=== PATIENT | female | born 1975 | race American Indian/Alaskan Native ===

== ENCOUNTER 2016-12-18 10:04 | Emergency (ER) | payer OTHER ==
[2016-12-18] MEDS ORDERED: DECADRON IM ONE (11:33)
--- NOTE | 2016-12-18 11:39 | Emergency Department Report ---
ED Back Pain/Injury HPI - General Chief Complaint: Extremity Injury, Lower Stated Complaint: LT LEG PAIN Time Seen by Provider: 12/18/16 11:22 Source: patient Mode of arrival: Ambulatory Limitations: No Limitations - History of Present Illness Initial Comments: PT states years ago, she was dx with sciatica. PT states she has been having the same pain for 1 week. PT states her pain is in her left low back and radiates down her buttocks to her left leg. PT states she had tried taking OTC Naprosyn but no relief. PT denies any new injury or trauma. MD Complaint: back pain Onset/Timin -: Gradual, week(s) Similar Symptoms Previously: Yes Radiation: left leg Severity scale (0 -10): 9 Quality: sharp Improves With: none Worsens With: sitting upright Associated Symptoms: denies other symptoms. denies: weakness, difficulty walking, difficulty urinating, incontinence, fever/chills, headaches, abdominal pain, loss of appetite, nausea/vomiting, rash Treatments Prior to Arrival: NSAIDS - Related Data Home Medications Medication Instructions Recorded Confirmed Last Taken amLODIPine [Norvasc] 10 mg PO DAILY 11/14/14 12/07/14 12/07/14 04:30 Tramadol HCl [Tramadol HCl] 1 tab PO PRN PRN 12/01/14 12/07/14 12/05/14 19:00 Hydrochlorothiazide 25 mg PO DAILY 12/05/14 12/05/14 11/30/14 [Hydrochlorothiazide] Previous Rx's Medication Instructions Recorded Last Taken Type Acetaminophen/Codeine [Tylenol #3] 1 tab PO Q6H PRN #12 tab 12/18/16 Unknown Rx Ibuprofen [Motrin] 600 mg PO Q8H PRN #15 tablet 12/18/16 Unknown Rx methOCARBAMOL [Robaxin TAB] 500 mg PO Q6H PRN #15 tablet 12/18/16 Unknown Rx Allergies Allergy/AdvReac Type Severity Reaction Status Date / Time metronidazole [From Flagyl] Allergy Swelling Verified 12/18/16 10:12 ED Review of Systems ROS: Stated complaint: LT LEG PAIN Other details as noted in HPI Comment: All other systems reviewed and negative Constitutional: denies: chills, fever Respiratory: denies: shortness of breath, SOB with exertion, SOB at rest Cardiovascular: denies: chest pain Gastrointestinal: denies: abdominal pain, nausea, vomiting Musculoskeletal: back pain ED Past Medical Hx - Past Medical History Hx Hypertension: Yes (10+YRS ) Hx Renal Disease: No Hx Seizures: No Hx Asthma: No Additional medical history: SCIATICA. OBESITY - Surgical History Additional Surgical History: LEFT MENISCUS REPAIR - Social History Smoking Status: Never Smoker Substance Use Type: None - Medications Home Medications: Home Medications Medication Instructions Recorded Confirmed Last Taken Type amLODIPine [Norvasc] 10 mg PO DAILY 11/14/14 12/07/14 12/07/14 04:30 History Tramadol HCl [Tramadol HCl] 1 tab PO PRN PRN 12/01/14 12/07/14 12/05/14 19:00 History Hydrochlorothiazide 25 mg PO DAILY 12/05/14 12/05/14 11/30/14 History [Hydrochlorothiazide] Acetaminophen/Codeine [Tylenol #3] 1 tab PO Q6H PRN #12 tab 12/18/16 Unknown Rx Ibuprofen [Motrin] 600 mg PO Q8H PRN #15 tablet 12/18/16 Unknown Rx methOCARBAMOL [Robaxin TAB] 500 mg PO Q6H PRN #15 tablet 12/18/16 Unknown Rx ED Physical Exam - General Limitations: No Limitations General appearance: alert, in no apparent distress - Head Head exam: Present: atraumatic, normocephalic, normal inspection - Eye Eye exam: Present: normal appearance, PERRL, EOMI. Absent: conjunctival injection - ENT ENT exam: Present: normal exam, normal external ear exam - Neck Neck exam: Present: normal inspection, full ROM. Absent: tenderness, lymphadenopathy - Respiratory Respiratory exam: Present: normal lung sounds bilaterally. Absent: respiratory distress, chest wall tenderness - Cardiovascular Cardiovascular Exam: Present: regular rate, normal rhythm, normal heart sounds - GI/Abdominal GI/Abdominal exam: Present: soft. Absent: tenderness - Extremities Exam Extremities exam: Present: normal inspection, full ROM - Back Exam Back exam: Present: normal inspection, full ROM, tenderness. Absent: CVA tenderness (R), CVA tenderness (L), muscle spasm, paraspinal tenderness, vertebral tenderness - Expanded Back Exam Expanded Back exam: Absent: saddle anesthesia Back exam: Sciatic Notch Tenderness: Left, Negative Straight Leg Raising: Left - Neurological Exam Neurological exam: Present: alert, oriented X3 - Psychiatric Psychiatric exam: Present: normal affect, normal mood - Skin Skin exam: Present: warm, dry, intact, normal color. Absent: rash ED Course Vital Signs 12/18/16 12/18/16 10:17 12:02 Temperature 98.2 F 98.6 F Pulse Rate 83 72 Respiratory 17 18 Rate Blood Pressure 149/93 Blood Pressure 138/91 [Right] O2 Sat by Pulse 100 99 Oximetry - Reevaluation(s) Reevaluation #1: 12/18/16 11:39 PT aware of dx and plan of care. PT has no questions at this time. - Pulse Oximetry Interpretation Digit-Finger Initial Pulse Oximetry Readin Actions Taken: none ED Medical Decision Making - Differential Diagnosis sciatica, strain Critical Care Time: No Critical care attestation.: If time is entered above; I have spent that time in minutes in the direct care of this critically ill patient, excluding procedure time. ED Disposition Clinical Impression: Sciatica of left side Disposition: DC-01 TO HOME OR SELFCARE Is pt being admited?: No Does the pt Need Aspirin: No Condition: Stable Instructions: Sciatica (ED) Additional Instructions: No driving or alcohol after taking Tylenol #3 or Robaxin follow up with Ortho in 3-5 days Follow up with PCP with in one week for bp recheck return to Ed if worsening or concerns Prescriptions: Acetaminophen/Codeine [Tylenol #3] 1 tab PO Q6H PRN #12 tab PRN Reason: Pain , Severe (7-10) Ibuprofen [Motrin] 600 mg PO Q8H PRN #15 tablet PRN Reason: Pain methOCARBAMOL [Robaxin TAB] 500 mg PO Q6H PRN #15 tablet PRN Reason: Muscle Spasm Referrals: RAUL RAYA MD [Primary Care Provider] - 3-5 Days ROSA ARMSTRONG MD [Staff Physician] - 3-5 Days Forms: Work/School Release Form(ED) Time of Disposition: 11:41
[2016-12-18 12:04] VITALS: BP 138/91
== END 2016-12-18 12:04 | disposition home or self-care (01) ==
LOC: ED 10:04
DX: M54.42 Lumbago with sciatica, left side (principal); I10 Essential (primary) hypertension; E66.9 Obesity, unspecified; Z88.8 Allergy status to other drugs, medicaments and biological substances
CPT/HCPCS: 96372; 99282; J1100

== ENCOUNTER 2018-08-12 13:59 | Emergency (ER) | payer OTHER ==
--- NOTE | 2018-08-12 14:38 | Emergency Department Report ---
Chief Complaint: Shoulder Injury Stated Complaint: RIGHT SHOULDER Time Seen by Provider: 08/12/18 14:34 - HPI History of Present Illness: pt presents with right shoulder pain that began two weeks ago believes she initially "slept wrong" on the shoulder no injury, no fall, no trauma pt has taken tylenol no PCP pt has a hx of HTN, pt states she did not take her BP medication today, she is on amlodipine 5 mg states she has not had her BP checked in several months has not seen PCP in several months BP is 212/119 in triage MSE screening note: Focused history and physical exam performed. ED Disposition for MSE Condition: Stable
[2018-08-12] MEDS ORDERED: NORVASC PO ONE (15:01)
[2018-08-12] MEDS ORDERED: CATAPRES PO ONE (15:01)
[2018-08-12] MEDS ORDERED: TORADOL IM ONE (15:02)
[2018-08-12] MEDS ORDERED: DELTASONE PO ONE (15:02)
[2018-08-12 16:21] VITALS: BP 173/107
--- NOTE | 2018-08-12 16:21 | Emergency Department Report ---
ED Neck Pain/Injury HPI - General Chief Complaint: Shoulder Injury Stated Complaint: RIGHT SHOULDER Time Seen by Provider: 08/12/18 14:34 Mode of arrival: Ambulatory Limitations: No Limitations - History of Present Illness Initial Comments: This is a 43-year-old female nontoxic, well nourished in appearance, no acute signs of distress presents to the ED with c/o of right sided upper back pain x2 weeks. Patient stated that 2 weeks ago woke up with pain and has gotten worse. Patient denies any radiation of pain. Patient denies any trauma. Denies any bladder or bowel instability. Patient denies any urinary symptoms. Denies any fever, chills, nausea, vomiting, headache, stiff neck, chest pain or shortness of breath. Patient denies any numbness or tingling. Denies any allergies. Allergies includes Flagyl. Past medical history includes hypertension which she takes amlodipine but has not taken her dose today. MD Complaint: upper back pain -: week(s) (2) Place: home Severity: mild Severity scale (0 -10): 3 Quality: aching Consistency: intermittent Improves With: immobilization Worsens With: movement of neck Associated Symptoms: none. denies: headache, fever, numbness, tingling, weakness, difficulty walking, swollen glands, difficulty swallowing, nausea, vomiting Treatments Prior to Arrival: none - Related Data Home Medications Medication Instructions Recorded Confirmed Last Taken amLODIPine [Norvasc] 10 mg PO DAILY 11/14/14 12/07/14 12/07/14 04:30 hydroCHLOROthiazide 25 mg PO DAILY 12/05/14 12/05/14 11/30/14 [Hydrochlorothiazide] Previous Rx's Medication Instructions Recorded Last Taken Type Amoxicillin 500 mg PO BID #20 capsule 05/06/18 Unknown Rx Cyclobenzaprine [Flexeril] 10 mg PO QHS PRN #10 tablet 08/12/18 Unknown Rx Ibuprofen [Motrin] 600 mg PO Q8H PRN #20 tablet 08/12/18 Unknown Rx Allergies Allergy/AdvReac Type Severity Reaction Status Date / Time metronidazole [From Flagyl] Allergy Swelling Verified 12/18/16 10:12 ED Review of Systems ROS: Stated complaint: RIGHT SHOULDER Other details as noted in HPI Constitutional: denies: chills, fever Eyes: denies: eye pain, eye discharge, vision change ENT: denies: ear pain, throat pain Respiratory: denies: cough, shortness of breath, wheezing Cardiovascular: denies: chest pain, palpitations Endocrine: no symptoms reported Gastrointestinal: denies: abdominal pain, nausea, diarrhea Genitourinary: denies: urgency, dysuria, discharge Musculoskeletal: denies: back pain, joint swelling, arthralgia Skin: denies: rash, lesions Neurological: denies: headache, weakness, paresthesias Psychiatric: denies: anxiety, depression Hematological/Lymphatic: denies: easy bleeding, easy bruising ED Past Medical Hx - Past Medical History Hx Hypertension: Yes (10+YRS ) Hx Renal Disease: No Hx Seizures: No Hx Asthma: No Additional medical history: SCIATICA. OBESITY - Surgical History Additional Surgical History: LEFT MENISCUS REPAIR - Social History Smoking Status: Never Smoker Substance Use Type: None - Medications Home Medications: Home Medications Medication Instructions Recorded Confirmed Last Taken Type amLODIPine [Norvasc] 10 mg PO DAILY 11/14/14 12/07/14 12/07/14 04:30 History hydroCHLOROthiazide 25 mg PO DAILY 12/05/14 12/05/14 11/30/14 History [Hydrochlorothiazide] Amoxicillin 500 mg PO BID #20 capsule 05/06/18 Unknown Rx Cyclobenzaprine [Flexeril] 10 mg PO QHS PRN #10 tablet 08/12/18 Unknown Rx Ibuprofen [Motrin] 600 mg PO Q8H PRN #20 tablet 08/12/18 Unknown Rx ED Physical Exam - General Limitations: No Limitations General appearance: alert, in no apparent distress - Head Head exam: Present: atraumatic, normocephalic - Eye Eye exam: Present: normal appearance - Neck Neck exam: Present: normal inspection, full ROM. Absent: tenderness, meningismus, lymphadenopathy - Respiratory Respiratory exam: Present: normal lung sounds bilaterally. Absent: respiratory distress, wheezes, rales, rhonchi, stridor, chest wall tenderness, accessory muscle use, decreased breath sounds, prolonged expiratory - Cardiovascular Cardiovascular Exam: Present: regular rate, normal rhythm, normal heart sounds. Absent: irregular rhythm, systolic murmur, diastolic murmur, rubs, gallop - GI/Abdominal GI/Abdominal exam: Present: soft, normal bowel sounds. Absent: distended, tenderness, guarding, rebound, rigid, diminished bowel sounds - Extremities Exam Extremities exam: Present: normal inspection, full ROM, normal capillary refill. Absent: tenderness - Back Exam Back exam: Present: normal inspection, full ROM, paraspinal tenderness (right cervical paraspinal). Absent: tenderness, CVA tenderness (R), CVA tenderness (L), muscle spasm, vertebral tenderness, rash noted - Neurological Exam Neurological exam: Present: alert, oriented X3 - Psychiatric Psychiatric exam: Present: normal affect, normal mood - Skin Skin exam: Present: warm, dry, intact, normal color. Absent: rash ED Course Vital Signs 08/12/18 08/12/18 08/12/18 14:34 15:03 15:06 Temperature 98.5 F Pulse Rate 92 H 88 Respiratory 18 16 Rate Blood Pressure 212/119 203/125 O2 Sat by Pulse 99 Oximetry - Reevaluation(s) Reevaluation #1: 08/12/18 16:22 Patient is speaking in full sentences with no signs of distress noted. ED Medical Decision Making - Medical Decision Making This is a 43-year-old female that presents with right cervical muscle pain. Patient is stable was examined by me. There is no spinal tenderness. There is no cauda equina syndrome during examination. No bladder or bowel instability. Patient received Toradol 60 mg IM in the ED which stated that her symptoms has resolved and subsided. Patient also received Catapres and Norvasc in the ER. Blood pressure has decreased parts of discharge. Patient was instructed to continue taking her blood pressure medication as prescribed. Patient was also stated keeping the diary of her blood pressure presented to primary care doctor. Patient is discharged with muscle relaxant and Motrin. Patient was instructed not to operate any machinery while taking muscle relaxant as they cause her drowsiness. Patient was referred to Follow-up with a primary care doctor in 3-5 days or if symptoms worsen and continue return to emergency room as soon as possible. At time of discharge, the patient does not seem toxic or ill in appearance. No acute signs of distress noted. Patient agrees to discharge treatment plan of care. No further questions noted by the patient. This chart is dictated with using [employer] D[employer]ation [employer] Critical care attestation.: If time is entered above; I have spent that time in minutes in the direct care of this critically ill patient, excluding procedure time. ED Disposition Clinical Impression: Cervical muscle strain Qualifiers: Encounter type: initial encounter Qualified Code(s): S16.1XXA - Strain of muscle, fascia and tendon at neck level, initial encounter Hypertension Qualifiers: Hypertension type: unspecified Qualified Code(s): I10 - Essential (primary) hypertension Disposition: DC- TO HOME OR SELFCARE Is pt being admited?: No Does the pt Need Aspirin: No Condition: Stable Instructions: Muscle Strain (ED), Hypertension (ED) Additional Instructions: Follow-up with a primary care doctor in 3-5 days or if symptoms worsen and continue return to emergency room as soon as possible. Take ibuprofen and Flexeril as prescribed. Do not operate heavy machinery while taking Flexeril due to sedation Prescriptions: Cyclobenzaprine [Flexeril] 10 mg PO QHS PRN #10 tablet PRN Reason: Muscle Spasm Ibuprofen [Motrin] 600 mg PO Q8H PRN #20 tablet PRN Reason: Pain Referrals: [facility] MD ANGELA [Primary Care Provider] - 3-5 Days PRIMARY CAREMD [Referring] - 3-5 Days CHRIS MARTINEZ MD [Staff Physician] - 3-5 Days [facility] [Outside] - 3-5 Days [facility] [Outside] - 3-5 Days Forms: Work/School Release Form(ED)
== END 2018-08-12 16:34 | disposition home or self-care (01) ==
LOC: ED 13:59
DX: S16.1XXA Strain of muscle, fascia and tendon at neck level, initial encounter (principal); I10 Essential (primary) hypertension; Z88.8 Allergy status to other drugs, medicaments and biological substances; X58.XXXA Exposure to other specified factors, initial encounter; Y93.89 Activity, other specified; Y92.89 Other specified places as the place of occurrence of the external cause; Y99.8 Other external cause status
CPT/HCPCS: 96372; 99282; J1885; J7512

== ENCOUNTER 2018-10-16 09:28 | Day surgery (SDC) | payer OTHER ==
[2018-10-12 10:27] LABS: Basophils # (Auto) 0.1 K/mm3 (0.0-0.1); Basophils % (Auto) 0.9 % (0.0-1.8); Eosinophils # (Auto) 0.2 K/mm3 (0.0-0.4); Eosinophils % (Auto) 3.3 % (0.0-4.3); Lymphocytes # (Auto) 1.8 K/mm3 (1.2-5.4); Lymphocytes % (Auto) 28.1 % (13.4-35.0); Mean Corpuscular HGB Conc 29 % (30-34); Monocytes # (Auto) 0.4 K/mm3 (0.0-0.8); Monocytes % (Auto) 5.6 % (0.0-7.3); Platelet Count 361 K/mm3 (140-440); Red Blood Count 4.11 M/mm3 (3.65-5.03); Red Cell Distribution Width 19.5 % (13.2-15.2)
[2018-10-12 10:30] LABS: Hemoglobin 7.3 gm/dl (10.1-14.3)
[2018-10-12 10:31] LABS: Hematocrit 25.3 % (30.3-42.9); Mean Corpuscular Volume 62 fl (79-97)
--- NOTE | 2018-10-12 10:57 | Anesthesia Consultation ---
Anesthesia Consult and Med Hx - Airway Anesthetic Teeth Evaluation: Good ROM Head & Neck: Adequate Mental/Hyoid Distance: Adequate Mallampati Class: Class I - Pulmonary Exam CTA: Yes - Cardiac Exam Cardiac Exam: RRR - Pre-Operative Health Status ASA Pre-Surgery Classification: ASA2 Proposed Anesthetic Plan: General (Binta has persistently abnormla ekg's x2 a month apart .Will refer her for cardiac evaluation. ) - Pulmonary Hx Smoking: No Hx Asthma: No Hx Sleep Apnea: No - Cardiovascular System Hx Hypertension: Yes (Over 10 yrs) - Central Nervous System Hx Seizures: No Hx Psychiatric Problems: No - Gastrointestinal Hx Gastroesophageal Reflux Disease: Yes (Mild, food related) - Endocrine Hx Renal Disease: No Hx Non-Insulin Dependent Diabetes: No - Hematic Hx Anemia: Yes - Other Systems Hx Alcohol Use: Yes (Occas) Hx Cancer: No Hx Obesity: Yes
[2018-10-12 12:47] LABS: Calcium 8.8 mg/dL (8.4-10.2)
--- NOTE | 2018-10-15 10:55 | History and Physical Report ---
History of Present Illness Date of examination: 10/09/18 Date of admission: 10/16/18 Chief complaint: heavy periods History of present illness: PT STATES SHE ALSO HAS HEAVY MENES WITH LAST PERIOD LASTING ABOUT 2 WEEKS. PERIODS HAVE BEEN HEAVY FOR YEARS BUT NEVER LASTING THIS LONG. SHE IS S/P BEING SEEN IN [facility] IN WHICH SONO WAS DONE THAT SHOWED A THICKENED ENDOMETRIUM. SHE IS INTERESTED IN THE NOVASURE ABLATION.All risk/benefits/alternatives were d/w pt and questions were addressed and answered.Pt is s/p embx and SIS that were both negative for abnormal tissue. Past History : 5 Term Births: 3 Living Children: 3 Para: 3 Elect. Ab: 1 Spont. 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 of genital herpes: no Partner hx. of genital herpes: no Hx of STD: HPV Active Medications (reviewed today): LYSTEDA 650 MG ORAL TABLET (TRANEXAMIC ACID) 1300 mg 3 times/day (3900 mg/day) for up to 5 days during monthly menstruation AMLODIPINE 5MG () Current Allergies (reviewed today): No known allergies Past Medical History: Hypertension Past Surgical History: negative Negative Past Surgical History General Comments - FH: DM HTN BREAST CA Social History: Patient is Smoking History: Patient has never smoked. 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 History: denies: abnormal PAP smear Family/Genetic History: other (see hpi) Social history: no significant social history, Medications and Allergies Allergies Allergy/AdvReac Type Severity Reaction Status Date / Time metronidazole [From Flagyl] Allergy Swelling Verified 10/12/18 15:28 Home Medications Medication Instructions Recorded Confirmed Last Taken Type amLODIPine [Norvasc] 10 mg PO DAILY 11/14/14 10/09/18 12/07/14 04:30 History Active Meds: Active Medications Cefazolin Sodium (Ancef/Sterile Water 2 Gm/20 Ml) 2 gm in 20 mls @ 80 mls/hr IV PREOP NR; Protocol Review of Systems All systems: negative - Vital Signs Vital signs: Vital Signs Temp Pulse Resp BP Pulse Ox 97.2 F L 80 18 160/90 100 10/12/18 10:00 10/12/18 10:00 10/12/18 10:00 10/12/18 10:00 10/12/18 10:00 Temp Pulse Resp BP Pulse Ox 97.2 F L 80 18 160/90 100 10/12/18 10:00 10/12/18 10:00 10/12/18 10:00 10/12/18 10:00 10/12/18 10:00 - Physical Exam Breasts: Positive: deferred Cardiovascular: Normal S1, Normal S2 Lungs: Positive: Clear to auscultation, Normal air movement Abdomen: Positive: normal appearance, soft. Negative: distention, tenderness, guarding Genitourinary (Female): Positive: other (deferred until EUA) Extremities: Positive: normal. Negative: tenderness, edema Deep Tendon Reflex Grade: Normal +2 Results Result Diagrams: 10/12/18 10:00 10/12/18 10:00 All other labs normal. Assessment and Plan - Patient Problems (1) Menorrhagia with regular cycle Status: Acute Plan to address problem: -to OR for above stated procedure. All risk, benefits, and alternatives were d/w pt and questions were addressed and answered. -consents signed and placed on the chart. (2) Secondary dysmenorrhea Status: Acute Plan to address problem: -I d/w the the ablation may not help her pain.She states she understands and s till desire to have the procedure.
[~2018-10-16 09:28] MED LIST: ANCEF/STERILE WATER 2 GM/20 ML 2 GM/20 ML SYRINGE IV NR
--- NOTE | 2018-10-16 10:26 | Anesthesia Day of Surgery ---
Anesthesia Day of Surgery - Day of Surgery Patient Examined: Yes Patient H&P Reviewed: Yes Patient is NPO: Yes
[2018-10-16] MEDS ORDERED: DILAUDID IV PRN (10:27)
[2018-10-16] MEDS ORDERED: ZOFRAN IV PRN (10:27)
[2018-10-16] MEDS ORDERED: PEPCID PO NR (11:00)
[2018-10-16] MEDS ORDERED: LACTATED RINGERS 1,000 ML IV SCH (11:00)
[2018-10-16] MEDS ORDERED: SUBLIMAZE ONE (11:30)
[2018-10-16] MEDS ORDERED: XYLOCAINE CARDIAC IV ONE (11:30)
[2018-10-16] MEDS ORDERED: DIPRIVAN 10 MG/ML IV ONE (11:31)
[2018-10-16] MEDS ORDERED: NACL 0.9% IR ONE (11:54)
[2018-10-16] MEDS ORDERED: ZOFRAN ONE (11:59)
[2018-10-16] MEDS ORDERED: DECADRON ONE (11:59)
[2018-10-16] MEDS ORDERED: ANCEF/STERILE WATER 2 GM/20 ML 2 GM/20 ML SYRINGE IV NR (12:00)
[2018-10-16] MEDS ORDERED: TORADOL ONE (12:13)
--- NOTE | 2018-10-16 12:30 | Operative Report ---
Operative Report Operative Report: Date of procedure: 10/16/2018 Pre-operative diagnosis: Menorrhagia Post-operative diagnosis: Procedure name(s): 1. Hysteroscopy 2. NovaSure ablation Surgeon: Francy Beckman M.D. Animal Nutrition Consultant: IBAN Anesthesia: Gen. endotracheal anesthesia EBL: Minimal Urine output: Approximately 50 mL urine output prior to the onset of procedure via straight catheterization Fluids: 2 L Findings: Normal cervix. Thickened endometrial tissue on hysteroscopy. No endometrial masses noted. Indications: Patient with a history of menorrhagia leading to anemia. All risks benefits and alternatives were discussed with the patient. Patient desired NovaSure ablation. Patient underwent endometrial biopsy that was negative prior to procedure today. Patient also underwent saline infused sonogram that was also negative for any intrauterine masses. Procedure: Patient was taken to the operating room where she was placed under general endotracheal anesthesia she was then prepped and draped in normal sterile fashion in dorsal lithotomy position with legs in Celestino stirrups. Straight catheterization of the bladder was performed at this time. Sterile speculum was placed inside of the vagina to visualize the entire cervix. The anterior lip of the cervix was grasped with a single-tooth tenaculum and the uterus was sounded to 9 cm. The cervix was then dilated in order to allow passage of the hysteroscope. Hysteroscopy yielded the above-stated findings. The cervical length was noted to be 4 cm. The uterine cavity length was calculated to be cm. The cervix was then dilated more to allow passage of the NovaSure device. With placement of the NovaSure device the cavity width was noted to be 4.0 cm. The integrity of the seal was then tested. The device did pass the testing. The power that was used for the NovaSure ablation was 110 The amount of time of the ablation was 139 seconds. Hysteroscopy following the ablation noted that there was adequate cauterization of the uterine cavity. All instruments were removed from the vagina and the cervix. Patient tolerated the procedure well. All counts were correct.
--- NOTE | 2018-10-16 12:32 | Short Stay Summary ---
Short Stay Documentation Date of service: 10/16/18 - History H&P: dictated Social history: no significant social history, - Allergies and Medications Current Medications: Allergies metronidazole [From Flagyl] Allergy (Verified 10/12/18 15:28) Swelling Home Medications Medication Instructions Recorded Confirmed Last Taken Type amLODIPine [Norvasc] 10 mg PO DAILY 11/14/14 10/16/18 10/16/18 08:00 History Ibuprofen [Motrin 800 MG tab] 800 mg PO Q6HR PRN #30 tablet 10/16/18 Unknown Rx oxyCODONE /ACETAMINOPHEN [Percocet 1 tab PO Q4HR #30 tab 10/16/18 Unknown Rx 5/325] Active Medications Famotidine (Pepcid) 20 mg PO PREOP NR Stop: 10/16/18 23:50 Last Admin: 10/16/18 10:55 Dose: 20 mg Documented by: Hydromorphone HCl (Dilaudid) 0.5 mg IV Q10MIN PRN PRN Reason: Pain , Severe (7-10) Lactated Ringer's (Lactated Ringers) 1,000 mls @ 75 mls/hr IV DIRECT CHRIS Last Admin: 10/16/18 10:50 Dose: 75 mls/hr Documented by: Cefazolin Sodium (Ancef/Sterile Water 2 Gm/20 Ml) 2 gm in 20 mls @ 80 mls/hr IV PREOP NR; Protocol Stop: 10/16/18 23:59 Ondansetron HCl (Zofran) 4 mg IV ONCE PRN PRN Reason: Nausea And Vomiting - Physical exam Breasts: deferred - Brief post op/procedure progress note Date of procedure: 10/16/18 Pre-op diagnosis: menorrhagia Post-op diagnosis: same Procedure: hysteroscopy Nova Sure ablation Anesthesia: GETA Findings: see op note Surgeon: KRYSTAL KYEL Estimated blood loss: minimal Pathology: none Condition: stable - Hospital course Hospital course: Pt s/p above procedure. She will be d/c home once d/c criteria has been met in the PACU. Pt has f/u apt in the office in one week. - Disposition Condition at discharge: Good - Discharge Diagnoses (1) Menorrhagia with regular cycle Status: Acute (2) Secondary dysmenorrhea Status: Acute Short Stay Discharge Plan Follow up with: DESTINI OBREGON MD [Primary Care Provider] - 7 Days Forms: Outpatient Surgery DC Inst. Prescriptions: Ibuprofen [Motrin 800 MG tab] 800 mg PO Q6HR PRN #30 tablet PRN Reason: Pain, Moderate (4-6) oxyCODONE /ACETAMINOPHEN [Percocet 5/325] 1 tab PO Q4HR #30 tab
[2018-10-16 12:44] VITALS: BP 144/87
[2018-10-16] MEDS ORDERED: PERCOCET 5/325 PO PRN (12:45)
--- NOTE | 2018-10-16 22:24 | Post Anesthesia Evaluation ---
- Post Anesthesia Evaluation Patient Participated: Yes Airway Patent: Yes Stable Respiratory Function: Yes Nausea/Vomiting: No Temp > 96.8F: Yes Pain Manageable: Yes Adequeate Hydration: Yes Anesthesia Complications: No Block Receding Appropriately: Not Applicable Patient on Ventilator: No
== END 2018-10-16 09:29 | disposition home or self-care (01) ==
LOC: OR 09:28
PROVIDERS: ATTEND Obstetrics & Gynecology
DX: N92.0 Excessive and frequent menstruation with regular cycle (principal); N94.5 Secondary dysmenorrhea; I10 Essential (primary) hypertension; K21.9 Gastro-esophageal reflux disease without esophagitis; E66.9 Obesity, unspecified; Z68.33 Body mass index [BMI] 33.0-33.9, adult; Z72.89 Other problems related to lifestyle; Z98.890 Other specified postprocedural states; Z79.899 Other long term (current) drug therapy; Z88.8 Allergy status to other drugs, medicaments and biological substances
CPT/HCPCS: 36415; 58563; 80048; 81025; 84703; 85025; 93005; 93010; A4217; J0690; J1100; J1885; J2001; J2405; J2704; J3010; J7120

== ENCOUNTER 2021-08-20 13:27 | Outpatient (CLI) | payer BC, OTHER ==
--- NOTE | 2021-08-20 14:37 | XRay Report ---
Lumbar spine 3 views INDICATION: Pain FINDINGS: Endplate changes are seen in the lower thoracic spine and L5-S1. Facet degenerative changes seen throughout. No subluxation. No acute fracture IMPRESSION: Degenerative change Signer Name: Wilian Quispe MD Signed: 08/20/2021 2:33 PM Workstation Name: [id number]
== END 2021-08-20 13:28 | disposition home or self-care (01) ==
LOC: XRAY 13:27
PROVIDERS: ATTEND Internal Medicine
DX: M47.815 Spondylosis without myelopathy or radiculopathy, thoracolumbar region (principal)
CPT/HCPCS: 72100

== ENCOUNTER 2021-11-26 12:51 | Outpatient (CLI) | payer BC ==
--- NOTE | 2021-11-28 10:52 | Mammography Report ---
DIGITAL SCREENING MAMMOGRAM WITH CAD, 11/26/2021 CLINICAL INFORMATION / INDICATION: Routine screening mammography. Z12.31 TECHNIQUE: Digital bilateral 2D mammography was obtained in the craniocaudal and mediolateral obliqu e projections. This examination was interpreted with the benefit of Computer-Aided Detection analysis . COMPARISON: 08/19/2013. FINDINGS: Breast Density: There are scattered areas of fibroglandular density. No dominant mass, suspicious calcifications, or architectural distortion in either breast. IMPRESSION: No mammographic evidence of malignancy. Follow up recommendation: Routine yearly screening mammogram. BI-RADS Category 1: NEGATIVE A "normal" or negative report should not discourage follow up or biopsy of a clinically significant f inding. A written summary of these findings will be mailed to the patient. The patient will be entered into a mammography reporting system which will generate a reminder letter for the patient's next appointmen t at the appropriate interval. The [employer] recommends yearly mammograms starting at age 40 and continuing as l [place] as a woman is in good health. Breast MRI is recommended for women with an approximate 20-25% or greater lifetime risk of breast cancer, including women with a strong family history of breast or ova niall cancer or who have been treated for Hodgkin's disease. Signer Name: Blade Knott MD Signed: 11/28/2021 10:47 AM Workstation Name: [id number]
== END 2021-11-26 12:52 | disposition home or self-care (01) ==
LOC: MAMMO 12:51
PROVIDERS: ATTEND Obstetrics & Gynecology
DX: Z12.31 Encounter for screening mammogram for malignant neoplasm of breast (principal)
CPT/HCPCS: 77067